=== PATIENT | female | born 1990 | race Two or more races ===

== ENCOUNTER 2017-06-13 15:27 | Emergency (ER) | payer MEDICAID ==
[~2017-06-13] VITALS: Ht 154.9 cm; Wt 54.4 kg
[2017-06-13 16:05] VITALS: BP 124/84
[2017-06-13 16:27] LABS: APPEARANCE,URINE CLOUDY; KETONES,URINE NEGATIVE (NEGATIVE); LEUKOCYTE ESTERASE ,URINE 3+ (NEGATIVE); NITRITE,URINE NEGATIVE (NEGATIVE); PH,URINE 7 (4.5-8.0); PROTEIN,URINE NEGATIVE (NEGATIVE); UROBILINOGEN,URINE NORMAL MG/DL (0.0-1.0)
[2017-06-13 16:43] LABS: BACTERIA,URINE MODERATE /HPF; SQUAMOUS EPITHELIAL CELL,UR MANY /LPF (NONE/OCC)
[2017-06-13] MEDS ORDERED: DIFLUCAN150 MG PO (16:51)
[2017-06-13] MEDS ORDERED: NITROFURANTOIN100 M2 ORAL (16:51)
[2017-06-13 16:57] VITALS: BP 124/84
--- NOTE | 2017-06-13 17:47 | Emergency Room Report ---
History of Present Illness General Chief Complaint: Female Urogenital Problems Source: Patient Present Illness HPI The patient is a 26-year-old female presenting for vaginal itching and white discharge for the past 3 days. She states that this began after having intercourse. She denies any known STD from her partner. She denies any pain. She denies any other symptoms including nausea, vomiting, fever, chills, dysuria , hematuria, back pain, abdominal pain, other discharge Patient History Past Medical History: see triage record Pertinent Family History: none Now: No Reviewed Nursing Documentation: PMH: Agreed, PSxH: Agreed Nursing Documentation-PMH Past Medical History: No Stated History Review of Systems All Other Systems: negative except mentioned in HPI Physical Exam Vital Signs Date Time Temp Pulse Resp B/P (MAP) Pulse Ox O2 Delivery O2 Flow Rate FiO2 06/13/17 15:56 98.8 77 16 124/84 98 Room Air Sp02 EP Interpretation: reviewed, normal General Appearance: no apparent distress, alert, GCS 15, non-toxic Head: normocephalic, atraumatic Eyes: bilateral eye normal inspection, bilateral eye PERRL ENT: hearing grossly normal, normal pharynx, no angioedema, normal voice Neck: full range of motion, supple/symm/no masses Gastrointestinal: normal bowel sounds, non tender, soft, non-distended, no guarding, no rebound Rectal: deferred Genitourinary: normal inspection, no CVA tenderness Musculoskeletal: back normal, gait/station normal, normal range of motion, non- tender, calf tenderness Neurologic: alert, oriented x3, responsive, motor strength/tone normal, sensory intact, speech normal Psychiatric: judgement/insight normal, memory normal, mood/affect normal, no suicidal/homicidal ideation Skin: normal color, no rash, warm/dry, well hydrated Medical Decision Making PA Attestation Dr. Fountain is my supervising physician. Patient management was discussed with my supervising physician Diagnostic Impression: Primary Impression: Yeast infection Additional Impression: Urinary tract infection Qualified Codes: N30.00 - Acute cystitis without hematuria ER Course The patient is a 26-year-old female presenting for vaginal itching and white discharge for the past 3 days Differential diagnosis considered but not limited to: UTI, BV, yeast infection, pyelonephritis, PID, PE: Vitals WNL. NAD. Abdomen: Normal appearance. Non distended. No ecchymosis. Normal BS.Abd non tender. No McBurney point tenderness. No guarding. No CVA tenderness Urinalysis shows bacteria, leukocyte esterase, white blood cells, but also squamous cells The patient discharged home with a prescription for Macrobid for UTI and one Diflucan to be taken after Abx for suspected yeast infection due to symptoms. Laboratory Tests Test 06/13/17 16:08 Urine Color Pale yellow Urine Appearance Cloudy Urine pH 7 (4.5-8.0) Urine Specific [place] 1.010 (1.005-1.035) Urine Protein Negative (NEGATIVE) Urine Glucose (UA) Negative (NEGATIVE) Urine Ketones Negative (NEGATIVE) Urine Occult Blood 1+ (NEGATIVE) H Urine Nitrite Negative (NEGATIVE) Urine Bilirubin Negative (NEGATIVE) Urine Urobilinogen Normal MG/DL (0.0-1.0) Urine Leukocyte Esterase 3+ (NEGATIVE) H Urine RBC 10-15 /HPF (0 - 2) H Urine WBC 5-10 /HPF (0 - 2) H Urine Squamous Epithelial Cells Many /LPF (NONE/OCC) H Urine Bacteria Moderate /HPF (NONE) H Urine HCG, Qualitative Negative Lab Results Impression Urinalysis shows bacteria, leukocyte esterase, white blood cells, but also squamous cells Last Vital Signs Date Time Temp Pulse Resp B/P (MAP) Pulse Ox O2 Delivery O2 Flow Rate FiO2 06/13/17 16:57 98.8 76 16 124/84 98 Room Air Status: improved Disposition: HOME, SELF-CARE Condition: Improved Scripts Fluconazole (DIFLUCAN) 150 Mg Tablet 150 MG PO DAILY, #1 TAB Prov: TERZIAN,CAITLIN P.A. 06/13/17 Nitrofurantoin Monohyd/M-Cryst* (MACROBID 100 MG*) 100 Mg Capsule 100 MG ORAL EVERY 12 HOURS, #14 CAP Prov: TERZIAN,CAITLIN P.A. 06/13/17 Referrals: NOT [facility]OSEN [facility]/,REFERRING (PCP) Patient Instructions: Urinary Tract Infection, Vaginal Yeast Infection, Adult Additional Instructions: I discussed my findings with the patient. All questions and concerns have been answered. Treatment and medication compliance have been addressed. I advised the patient that they need to follow up with PMD in 3-5 days. Return to ED if symptoms worsen, new symptoms arise, or if needed for any reason. Patient verbalized understanding of discharge instructions. Please take the medication for yeast infection after you have completed the antibiotics CAITLIN DAVIS Jun 13, 2017 17:47
== END 2017-06-13 16:57 | disposition home or self-care (01) ==
LOC: EMR 16:50
DX: B37.3 Candidiasis of vulva and vagina (principal); N39.0 Urinary tract infection, site not specified
CPT/HCPCS: 81003; 81025; 87086; 87181; 99283

== ENCOUNTER 2018-03-03 08:22 | Emergency (ER) | payer MEDICAID ==
[~2018-03-03] VITALS: Ht 154.9 cm; Wt 56.7 kg
[~2018-03-03 08:22] MED LIST: DIFLUCAN150 MG PO; NITROFURANTOIN100 M2 ORAL
[2018-03-03 08:25] VITALS: BP 125/78
[2018-03-03] MEDS ORDERED: NKM (08:29)
[2018-03-03 09:02] LABS: APPEARANCE,URINE CLEAR; BILIRUBIN, URINE NEGATIVE (NEGATIVE); COLOR,URINE PALE YELLOW; GLUCOSE, URINE (UA) NEGATIVE (NEGATIVE); KETONES,URINE NEGATIVE (NEGATIVE); LEUKOCYTE ESTERASE ,URINE 2+ (NEGATIVE); NITRITE,URINE NEGATIVE (NEGATIVE); PH,URINE 6.5 (4.5-8.0); PROTEIN,URINE NEGATIVE (NEGATIVE); UROBILINOGEN,URINE NORMAL MG/DL (0.0-1.0)
--- NOTE | 2018-03-03 09:42 | Emergency Room Report ---
History of Present Illness General Chief Complaint: Female Urogenital Problems Source: Patient Present Illness HPI The patient presents with abnormal vaginal discharge and pain with sexual intercourse. She states there has been some itching. She states that she is in an 8 year relationship, however, she has had some suspicion of infidelity in her partner. She states she had sexual intercourse with her regular partner this weekend and subsequently developed pain and an abnormal discharge since that time. She states that she did have the condom break during this last weekend. She states that the pain is primarily with intercourse. She states that her discharge is watery and smells foul and is a little bloody. She uses condoms for contraception. She denies abdominal pain. She denies fever or chills. She denies nausea or vomiting. She has no other complaints. Allergies: Coded Allergies: No Known Allergies (Unverified , 03/03/18) Patient History Past Medical History: other - Sick sinus syndrome Past Surgical History: none Social History: Denies: smoking, alcohol use, drug use Last Menstrual Period: 02/17/18 Reviewed Nursing Documentation: PMH: Agreed; PSxH: Agreed Nursing Documentation-PMH Past Medical History: No Stated History Review of Systems All Other Systems: negative except mentioned in HPI Physical Exam Vital Signs Date Time Temp Pulse Resp B/P (MAP) Pulse Ox O2 Delivery O2 Flow Rate FiO2 03/03/18 08:25 98.0 78 18 125/78 97 Room Air 98.1 Sp02 EP Interpretation: reviewed, normal General Appearance: no apparent distress, alert, GCS 15, non-toxic Head: normocephalic, atraumatic Eyes: bilateral eye normal inspection, bilateral eye PERRL ENT: hearing grossly normal, normal pharynx, no angioedema, normal voice Neck: full range of motion, supple/symm/no masses Respiratory: chest non-tender, lungs clear, normal breath sounds, no respiratory distress, no retraction, no accessory muscle use, speaking full sentences Cardiovascular #1: regular rate, rhythm, no edema Gastrointestinal: normal bowel sounds, soft, non-distended, no guarding, no rebound, tenderness - Diffusely ttp, including RLQ Rectal: deferred Genitourinary: ext genitalia/vag normal, other - [place] watery discharge with mild irritation of the cervix and small amount of bleeding. No CMT or adenexal tenderness. Musculoskeletal: back normal, gait/station normal, normal range of motion, non- tender Neurologic: alert, oriented x3, responsive, motor strength/tone normal, sensory intact, speech normal Psychiatric: judgement/insight normal, memory normal, mood/affect normal, no suicidal/homicidal ideation Skin: normal color, no rash, warm/dry, well hydrated Medical Decision Making Diagnostic Impression: Primary Impression: Vaginitis Additional Impression: Cervicitis ER Course This patient has abnormal vaginal discharge and mild cervicitis on pelvic exam. She has a benign abdominal exam. I do not suspect PID at this time. The patient is otherwise well-appearing and nontoxic. The patient does have concerns of infidelity and her partner and was recently exposed after a broken condom. The patient agreed to presumptive treatment for gonorrhea and chlamydia. She is also instructed to have her partner treated and tested before further intercourse. She is instructed to obtain a Pap smear, HIV and syphilis testing from her primary care physician. She is given close return precautions and follow-up instructions. Laboratory Tests Test 03/03/18 08:31 03/03/18 09:18 Urine Color Pale yellow Urine Appearance Clear Urine pH 6.5 (4.5-8.0) Urine Specific [place] 1.010 (1.005-1.035) Urine Protein Negative (NEGATIVE) Urine Glucose (UA) Negative (NEGATIVE) Urine Ketones Negative (NEGATIVE) Urine Blood 2+ (NEGATIVE) H Urine Nitrite Negative (NEGATIVE) Urine Bilirubin Negative (NEGATIVE) Urine Urobilinogen Normal MG/DL (0.0-1.0) Urine Leukocyte Esterase 2+ (NEGATIVE) H Urine RBC 2-4 /HPF (0 - 2) H Urine WBC 2-4 /HPF (0 - 2) Urine Squamous Epithelial Cells Occasional /LPF Urine Bacteria Occasional /HPF (NONE) Urine HCG, Qualitative Negative (NEGATIVE) Chlamydia trachomatis RNA Pending Microbiology Date/Time Source Procedure Growth Status 03/03/18 09:18 Vaginal Wet Prep - Final Complete Last Vital Signs Date Time Temp Pulse Resp B/P (MAP) Pulse Ox O2 Delivery O2 Flow Rate FiO2 03/03/18 08:25 98.0 78 18 125/78 97 Room Air 98.0 Status: improved Disposition: HOME, SELF-CARE Condition: Improved Referrals: [facility]ERR[facility] (PCP) Patient Instructions: Vaginitis Danielle Lees DO Mar 03, 2018 09:42
[2018-03-03] MEDS ORDERED: Azithromycin 250mg tab ORAL ONE (09:45)
[2018-03-03] MEDS ORDERED: Lidocaine 1% MPF 10mg/ml 5ml INJ ONE (09:45)
[2018-03-03 10:40] VITALS: BP 118/70
== END 2018-03-03 10:47 | disposition home or self-care (01) ==
LOC: EMR 08:49
DX: N72 Inflammatory disease of cervix uteri (principal); N76.0 Acute vaginitis
CPT/HCPCS: 81003; 81025; 87210; 87491; 96372; 99283; J0696; Q0144

== ENCOUNTER 2018-11-04 21:36 | Emergency (ER) | payer MEDICAID ==
[~2018-11-04] VITALS: Ht 154.9 cm; Wt 57.6 kg
[~2018-11-04 21:36] MED LIST changes: +NKM
--- NOTE | 2018-11-04 21:48 | NUR ---
CALLED FOR TRIAGE; NOT IN WAITING ROOM
[2018-11-04 21:56] VITALS: BP 128/87
[2018-11-04] MEDS ORDERED: NKM (21:59)
[2018-11-04] MEDS ORDERED: IBUPROFEN600 MG ORAL (22:13)
--- NOTE | 2018-11-04 22:14 | Emergency Room Report ---
History of Present Illness General Chief Complaint: Sore Throat Source: Patient Present Illness HPI Is a 28-year-old female with no past medical history. She presents with chief complaint of fever, cough, chills. Onset 2 days ago. Now her son has a same thing. She has slight runny nose. Coughing is nonproductive in nature. No other complaint. Fever is better now. Allergies: Coded Allergies: No Known Allergies (Unverified , 03/03/18) Patient History Past Medical History: see triage record, old chart reviewed Past Surgical History: none Pertinent Family History: none Social History: Denies: smoking Last Menstrual Period: 10/31/18 Now: No Immunizations: other Reviewed Nursing Documentation: PMH: Agreed; PSxH: Agreed Nursing Documentation-PMH Past Medical History: No Stated History Review of Systems Constitutional: Reports: fever Eye: Denies: eye pain, blurred vision ENT: Reports: nose congestion, throat pain; Denies: ear pain, throat swelling Respiratory: Reports: cough; Denies: shortness of breath Cardiovascular: Denies: chest pain, palpitations Gastrointestinal: Denies: abdominal pain, diarrhea, nausea, vomiting Musculoskeletal: Denies: back pain, joint pain Skin: Denies: rash Neurological: Denies: headache, numbness Endocrine: Denies: increased thirst, increased urine Hematologic/Lymphatic: Denies: easy bruising All Other Systems: negative except mentioned in HPI Physical Exam Vital Signs Date Time Temp Pulse Resp B/P (MAP) Pulse Ox O2 Delivery O2 Flow Rate FiO2 11/04/18 21:56 97.7 71 14 128/87 97 Room Air vitals normal Sp02 EP Interpretation: reviewed, normal General Appearance: well appearing, no apparent distress, alert Head: normocephalic, atraumatic Eyes: bilateral eye PERRL, bilateral eye EOMI ENT: hearing grossly normal, normal pharynx, uvula midline - Uvula elongated Neck: full range of motion, supple, no meningismus Respiratory: chest non-tender, lungs clear, normal breath sounds Cardiovascular #1: regular rate, rhythm, no murmur Gastrointestinal: normal bowel sounds, non tender, no mass, no organomegaly, no bruit, non-distended Musculoskeletal: back normal, gait/station normal, normal range of motion Psychiatric: mood/affect normal Skin: warm/dry Medical Decision Making Diagnostic Impression: Primary Impression: Upper respiratory infection Qualified Codes: J06.9 - Acute upper respiratory infection, unspecified ER Course Patient with an upper rest or infection. This is viral in nature. No evidence of any sepsis, meningitis, pneumonia or other serious bacterial infection. Last Vital Signs Date Time Temp Pulse Resp B/P (MAP) Pulse Ox O2 Delivery O2 Flow Rate FiO2 11/04/18 21:56 97.7 71 14 128/87 97 Room Air Status: unchanged Disposition: HOME, SELF-CARE Condition: Stable Scripts Ibuprofen* (MOTRIN*) 600 Mg Tablet 600 MG ORAL THREE TIMES A DAY, #30 TAB 0 Refills Prov: Wes Warren MD 11/04/18 Additional Instructions: Follow-up with your doctor in 7 days. Increase fluids. Return if worse. Wes Warren MD Nov 04, 2018 22:14
--- NOTE | 2018-11-04 22:21 | NUR ---
ED Nurse Note: pt walked in c/o sorethroat, cough, nasal congestion x1wk, resp even and unlabored on RA, -n/v/d at this time, vss, ambulates w/ steady gait, will cont monitor.
[2018-11-04 22:22] VITALS: BP 128/87
--- NOTE | 2018-11-04 22:32 | NUR ---
ED Nurse Note: pt cleared to be d/c per ERMD, pt discharge and aftercare instruction provided w/ prescription, pt education done via discussion and handout, pt advised to follow up with pcp or return to ed if changes in condition, pt verbalized understanding and agrees with plan, pt vss, resp even and unlabored on RA, left w/ all belongings.
== END 2018-11-04 22:31 | disposition home or self-care (01) ==
LOC: EMR 22:31
DX: J06.9 Acute upper respiratory infection, unspecified (principal)
CPT/HCPCS: 99282

== ENCOUNTER 2019-09-14 11:40 | Emergency (ER) | payer MEDICAID ==
[~2019-09-14] VITALS: Ht 152.4 cm; Wt 54.4 kg
[~2019-09-14 11:40] MED LIST changes: +IBUPROFEN600 MG ORAL
--- NOTE | 2019-09-14 11:53 | NUR ---
ED Nurse Note: pt ambulated to ed c/o cough and cold x 3 weeks. pt denies travel
[2019-09-14 11:54] VITALS: BP 130/90
[2019-09-14] MEDS ORDERED: TYLENOL EXTRA500 MG ORAL (12:25)
[2019-09-14] MEDS ORDERED: ROBITUSSIN COU237 M2 PO (12:25)
[2019-09-14] MEDS ORDERED: TAMIFLU75 MG ORAL (12:25)
[2019-09-14] MEDS ORDERED: ZITHROMAX250 MG ORAL (12:25)
[2019-09-14 12:28] VITALS: BP 122/88
--- NOTE | 2019-09-14 12:28 | NUR ---
ER DISCHARGE NOTE: Patient is cleared to be discharged per ERMD, pt is aox4, on room air, with stable vital signs. pt was given dc and prescription instructions, pt was able to verbalize understanding, pt id band removed without complications. pt is able to ambulate with steady gait. pt took all belongings.
--- NOTE | 2019-09-14 12:32 | Emergency Room Report ---
History of Present Illness General Chief Complaint: Upper Respiratory Illness Source: Patient Present Illness HPI 29-year-old female with no past medical history presents with a cough for the past 3 weeks. She reports there is mild phlegm. She noticed that she had a fever last night for the first time. Did not take any antipyretics. She also reports body aches starting yesterday. Denies any sore throat, chest pain, shortness of breath, vomiting, diarrhea. Denies any recent travel or sick contacts. Allergies: Coded Allergies: No Known Allergies (Unverified , 03/03/18) Patient History Past Medical History: see triage record Reviewed Nursing Documentation: PMH: Agreed; PSxH: Agreed Nursing Documentation-PMH Past Medical History: No Stated History Review of Systems All Other Systems: negative except mentioned in HPI Physical Exam Vital Signs Date Time Temp Pulse Resp B/P (MAP) Pulse Ox O2 Delivery O2 Flow Rate FiO2 09/14/19 11:46 98.1 76 18 130/90 (103) 99 09/14/19 11:54 Room Air Sp02 EP Interpretation: reviewed, normal General Appearance: normal inspection, well appearing, no apparent distress, alert, GCS 15, non-toxic ENT: EOM grossly intact, normal pharynx, normal voice, TMs + canals normal, uvula midline Neck: normal inspection, full range of motion, supple, thyroid normal, no meningismus, no bony tend Respiratory: chest non-tender, lungs clear, normal breath sounds, no respiratory distress Cardiovascular #1: normal peripheral pulses, regular rate, rhythm Gastrointestinal: normal inspection, normal bowel sounds, non tender, soft, no mass, no organomegaly, no guarding, no rebound Musculoskeletal: normal inspection, normal range of motion, no calf tenderness , gait/station normal, non-tender Neurologic: alert, motor strength/tone normal, 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 Mckeon is my supervising physician whom patient management and care has been discussed with. Diagnostic Impression: Primary Impression: Influenza-like illness Additional Impression: Cough ER Course Pt. presents to the ED c/o cough for 3 weeks and new onset fever and body aches yesterday. Ddx considered but are not limited to influenza, pneumonia, URI, bronchitis, asthma. Vital signs: are WNL, pt. is afebrile H&PE are most consistent with influenza or influenza-like syndrome ORDERS: none required at this time, the diagnosis is clinical ED INTERVENTIONS: None required at this time. DISCHARGE: At this time pt. is stable for d/c to home. Will provide printed patient care instructions, and prescriptions for Tamiflu, Tylenol, Robitussin-DM , and azithromycin due to worsening cough for a few weeks. Advised to follow up outpatient in 1-2 days. Care plan and follow up instructions have been discussed with the patient prior to discharge. Last Vital Signs Date Time Temp Pulse Resp B/P (MAP) Pulse Ox O2 Delivery O2 Flow Rate FiO2 09/14/19 11:54 76 18 09/14/19 11:54 98.1 130/90 99 Room Air Disposition: HOME, SELF-CARE Condition: Stable Scripts Guaifenesin/Dextromethorphan (Robitussin Cough-Chest Dm Liq) 237 Ml Liquid 5 ML PO Q4HR, #120 ML Prov: Melissa Ratliff N. P.A. 09/14/19 Acetaminophen* (TYLENOL EXTRA STRENGTH*) 500 Mg Tablet 500 MG ORAL Q6H PRN for Mild Pain/Temp > 100.5, #30 TAB 0 Refills Prov: Melissa Ratliff N. P.A. 09/14/19 Oseltamivir Phosphate (Tamiflu) 75 Mg Capsule 75 MG ORAL TWICE A DAY for 5 Days, #10 CAP Prov: Melissa Ratliff N. P.A. 09/14/19 Azithromycin* (ZITHROMAX*) 250 Mg Tablet 250 MG ORAL DAILY, #6 TAB 0 Refills Take two tables once daily for 1 day, then one tablet once daily for 4 days. Prov: Melissa Ratliff N. P.A. 09/14/19 Patient Instructions: Influenza, Adult, [id number], Cough, Adult, Easy-to- Read Additional Instructions: Take medications as directed. Follow up with a Primary Care Provider in 1-2 days, even if your symptoms have resolved. --Please review list of primary care clinics, if you do not already have a primary care provider Return to the emergency department sooner if new symptoms occur, or current symptoms become worse. - Please note that this Emergency Department Report was dictated using [id number] engineering technology software, occasionally this can lead to erroneous entry secondary to interpretation by the dictation equipment. Melissa Ratliff. Sep 14, 2019 12:32
== END 2019-09-14 12:28 | disposition home or self-care (01) ==
LOC: EMR 12:11
DX: R05 Cough (principal); R50.9 Fever, unspecified
CPT/HCPCS: 99282

== ENCOUNTER 2020-06-27 17:37 | Emergency (ER) | payer MEDICAID ==
[~2020-06-27] VITALS: Ht 154.9 cm; Wt 59.0 kg
[~2020-06-27 17:37] MED LIST changes: +ROBITUSSIN COU237 M2 PO; +TAMIFLU75 MG ORAL; +TYLENOL EXTRA500 MG ORAL; +ZITHROMAX250 MG ORAL
[2020-06-27 17:45] VITALS: BP 151/83
--- NOTE | 2020-06-27 17:45 | NUR ---
ED Nurse Note: Pt walked in to ED from home c/o SOB x2 days ago. Pt also reports hot flashes. Denies fever/ chills. On room air, 97%. Temp at triage 98.3F. AAOx4, verbally responsive.
--- NOTE | 2020-06-27 18:18 | Emergency Room Report ---
History of Present Illness General Chief Complaint: Dyspnea/Respdistress Source: Patient Present Illness HPI 29 YO female presents to the ED c/o SOB, and hot flashes multiple episodes since yesterday. Pt. also reports for months she has noticed her hands being really shaky. Pt. Denies cough, palpitations, fevers or chills. Pt. denies tobacco use. She denies and reports being on her period and on the Nexplanon implant. Pt. denies recent travel. She denies wheezing or rashes. She denies hx of anxiety. She does report being under increased amt. of stress. She denies CP, dizziness, syncope or SIM. 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 COVID-19 Screening: Negative COVID-19 COVID-19 Testing Source: MANAGER SPA 05/27 Patient History Past Medical History: see triage record Past Surgical History: none Pertinent Family History: none Last Menstrual Period: 06/25 Now: No Reviewed Nursing Documentation: PMH: Agreed; PSxH: Agreed Nursing Documentation-PMH Past Medical History: No History, Except For Hx COPD: No - Pneumonia Review of Systems All Other Systems: negative except mentioned in HPI Physical Exam Vital Signs Date Time Temp Pulse Resp B/P (MAP) Pulse Ox O2 Delivery O2 Flow Rate FiO2 06/27/20 17:41 98.2 79 18 151/83 (105) 97 Room Air Sp02 EP Interpretation: reviewed, normal General Appearance: no apparent distress, alert, GCS 15, non-toxic Head: normocephalic, atraumatic Eyes: bilateral eye normal inspection, bilateral eye PERRL ENT: hearing grossly normal, normal voice Neck: full range of motion Respiratory: chest non-tender, lungs clear, normal breath sounds, no respiratory distress, no accessory muscle use, no wheezing, speaking full sentences Cardiovascular #1: regular rate, rhythm, normal capillary refill Gastrointestinal: non tender, soft Rectal: deferred Genitourinary: normal inspection Musculoskeletal: back normal, normal range of motion, gait/station normal, non- tender Neurologic: alert, motor strength/tone normal, oriented x3, sensory intact, responsive, speech normal Psychiatric: judgement/insight normal Skin: no rash, normal color Lymphatic: no adenopathy Medical Decision Making PA Attestation Dr. Gaona is my supervising Physician whom patient management has been discussed with. Diagnostic Impression: Primary Impression: Urinary tract infection Qualified Codes: N30.01 - Acute cystitis with hematuria Additional Impression: Shortness of breath ER Course 29 YO female presents to the ED c/o SOB, and hot flashes multiple episodes since yesterday. Pt. also reports for months she has noticed her hands being really shaky. Pt. Denies cough, palpitations, fevers or chills. Pt. denies tobacco use. She denies and reports being on her period and on the Nexplanon implant. Pt. denies recent travel. She denies wheezing or rashes. She denies hx of anxiety. She does report being under increased amt. of stress. She denies CP, dizziness, syncope or SIM. Ddx considered but are not limited to anxiety, MD, PE, asthma, thyroid storm, hyperthyroid, EPS, UTI, PNA, or COVID-19 just to name a few. Vital signs: are WNL, pt. is afebrile. H&PE are most consistent with increased anxiety-the patient is nontoxic in appearance she is in no acute distress. Patient does not appear to be in respiratory distress or having increase in respiratory effort. Patient is well- appearing. ORDERS: -CXR: WNL -UA: Presence of bacteria with some increase in inflammatory markers -Urine Hcg: ED INTERVENTIONS: --None required at this time. -I do not identify an emergent condition at this time. With current pre sentation, pt. is stable for close outpatient follow up and conservative treatment. D/w pt. to return promptly to ED with worsening or new symptoms.- Pt. verbalizes' understanding and agreement with proposed treatment plan. DISCHARGE: At this time pt. is stable for d/c to home. Will provide printed patient care instructions, and any necessary prescriptions. Care plan and follow up instructions have been discussed with the patient prior to discharge. Labs Test 06/27/20 19:10 Urine Color Pale yellow Urine Appearance Slightly cloudy Urine pH 8 (4.5-8.0) Urine Specific [place] 1.010 (1.005-1.035) Urine Protein Negative (NEGATIVE) Urine Glucose (UA) Negative (NEGATIVE) Urine Ketones Negative (NEGATIVE) Urine Blood 5+ (NEGATIVE) Urine Nitrite Negative (NEGATIVE) Urine Bilirubin Negative (NEGATIVE) Urine Urobilinogen Normal MG/DL (0.0-1.0) Urine Leukocyte Esterase 1+ (NEGATIVE) Urine RBC Tntc /HPF (0 - 2) Urine WBC 5-10 /HPF (0 - 2) Urine Squamous Epithelial Cells Moderate /LPF (NONE/OCC) Urine Bacteria Moderate /HPF (NONE) Urine HCG, Qualitative Negative (NEGATIVE) Chest X-Ray Diagnostic Results Chest X-Ray Diagnostic Results : Chest X-Ray Ordered: Yes # of Views/Limited/Complete: 1 View Indication: Shortness of Breath EP Interpretation: Yes CECILY Xray: Interpretation reviewed, by supervising MD, and agrees with findings. Interpretation: no consolidation, no effusion, no pneumothorax, no acute cardiopulmonary disease Impression: No acute disease Electronically Signed by: Trisha Villalobos PA-C Last Vital Signs Date Time Temp Pulse Resp B/P (MAP) Pulse Ox O2 Delivery O2 Flow Rate FiO2 06/27/20 17:45 98.2 79 18 151/83 97 Room Air Disposition: HOME, SELF-CARE Condition: Stable Scripts Methocarbamol* (ROBAXIN-750*) 750 Mg Tablet 750 MG PO TID, #21 TAB 0 Refills Prov: Trisha Villalobos 06/27/20 Nitrofurantoin Monohyd/M-Cryst* (MACROBID 100 MG*) 100 Mg Capsule 100 MG ORAL EVERY 12 HOURS for 7 Days, #14 CAP Prov: Trisha Villalobos 06/27/20 Patient Instructions: Shortness of Breath, [id number] Additional Instructions: Take medications as directed. Follow up with a Primary Care Provider in 3-5 days, even if your symptoms have resolved. --Please review list of primary care clinics, if you do not already have a primary care provider Return sooner to ED if new symptoms occur, or current symptoms become worse. - Please note that this Emergency Department Report was dictated using [employer] car driver technology software, occasionally this can lead to erroneous entry secondary to interpretation by the dictation equipment. Trisha Villalobos Jun 27, 2020 18:18
--- NOTE | 2020-06-27 18:42 | Diagnostic Imaging Report ---
Indication: Chest pain Technique: One view of the chest Comparison: none Findings: Lungs and pleural spaces are clear. Heart size is normal. Impression: No acute process
--- NOTE | 2020-06-27 19:10 | NUR ---
ED Nurse Note: Recieved care from [facility]
[2020-06-27 19:38] LABS: APPEARANCE,URINE SLIGHTLY CLOUDY; BILIRUBIN, URINE NEGATIVE (NEGATIVE); COLOR,URINE PALE YELLOW; GLUCOSE, URINE (UA) NEGATIVE (NEGATIVE); KETONES,URINE NEGATIVE (NEGATIVE); LEUKOCYTE ESTERASE ,URINE 1+ (NEGATIVE); NITRITE,URINE NEGATIVE (NEGATIVE); PH,URINE 8 (4.5-8.0); PROTEIN,URINE NEGATIVE (NEGATIVE); UROBILINOGEN,URINE NORMAL MG/DL (0.0-1.0)
--- NOTE | 2020-06-27 19:52 | NUR ---
ED Nurse Note: Pt is resting comfortably pn bed, breathing is even and unlabored. she is on her phone. She speaks in complete sentances and is appropriate to situation. a/o/4. Vitals stable on room air, no signs of distress noted.
[2020-06-27 19:54] VITALS: BP 135/80
[2020-06-27] MEDS ORDERED: NITROFURANTOIN100 M2 ORAL (20:16)
[2020-06-27] MEDS ORDERED: ROBAXIN-750750 MG PO (20:16)
[2020-06-27 20:20] VITALS: BP 142/79
== END 2020-06-27 20:20 | disposition home or self-care (01) ==
LOC: EMR 18:05
DX: N30.01 Acute cystitis with hematuria (principal); R06.02 Shortness of breath
CPT/HCPCS: 71045; 81003; 81025; 87086; Z7502; 99283